=== PATIENT | female | born 1960 | race Caucasian/White ===

== ENCOUNTER 2017-02-24 17:45 | Emergency (ER) | payer SELFPAY ==
[~2017-02-24] VITALS: Ht 157.5 cm; Wt 56.4 kg
[2017-02-24 17:45] VITALS: Ht 157.5 cm; Wt 56.4 kg
[~2017-02-24 17:45] MED LIST: DULO60CA25 PO; ESTR1.2532 PO; LEVO75TA57 PO; NORT25CA79 PO; OXYC1TAB11 PO; ROPI2TAB6 PO
--- OUTSIDE RECORDS SUMMARY | 2017-02-24 17:49 | XMS REPORT ---
Author Author Rebel Augustine Organization [employer] Address Unknown Phone Unavailable Care Team Providers Care Clinical Orthoptist Name Role Phone Rbeel Augustine CP Unavailable Allergies No Known Allergies Problems No Known Problems Medications No Known Medications Results No Known Results Summary Purpose [employer] Submission
--- OUTSIDE RECORDS SUMMARY | 2017-02-24 17:49 | XMS REPORT ---
Author Author Rebel Augustine Organization [employer] Address Unknown Phone Unavailable Care Team Providers Care Systems Administrator Name Role Phone Rebel Augustine CP Unavailable Allergies No Known Allergies Problems Problem Type Condition Code Onset Dates Condition Status Assessment Dental caries, unspecified K02.9 Active Medications Medication Code System Code Instructions Start Date End Date Status Dosage Cymbalta [facility] [address]-90 not defined Premarin [facility] [address]-83 not defined Hydrocodone-Acetaminophen [facility] [address]-14 5-325 MG Orally every 4-6 hours p.r.n. for Aug 12, 2016 1 tablet as needed Amoxicillin [facility] [address]-70 500 MG Orally every 8 hrs for 1 capsule Ropinirole HCl [facility] [address]-60 not defined Synthroid [facility] [address]-38 not defined Procedures Procedure Coding System Code Date SURG REMOVAL ERUPTED TOOTH CPT-4 D7210 Aug 09, 2016 Vital Signs Date/Time: Aug 09, 2016 Blood Pressure Diastolic 56 mm Hg Blood Pressure Systolic 106 mm Hg Cardiac Monitoring Heart Rate 74 /min Results No Known Results Summary Purpose [employer] Submission
--- OUTSIDE RECORDS SUMMARY | 2017-02-24 17:49 | XMS REPORT | Referral Summary ---
Author Author [facility] Organization [facility] Address Unknown Phone Unavailable Care Team Providers Care Jewel Flat Surfacer Name Role Phone Tamar Eaton Primary Care Physician [phone] Encounter DANO [id number] Date(s): 09/06/15 - 09/06/15 [facility], Orthopedics [address] [place], [place] [address] Discharge Disposition: 01-Home or Self Care Attending Physician: Jovany Jimenez MD Vital Signs No data available for this section Problem List Condition Effective Dates Status Health Status Informant Acne Active rosacea(Confirmed) Cervicalgia(Confirme Active d) grade 1 lithesis Active L5-S1(Confirmed)1 DDD(Confirmed)2 Active 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 ) Depressive Active disorder(Confirmed) Fibromyalgia(Confirm Active ed) Incontinence of Active feces(Confirmed) Low back Active pain(Confirmed) Median Active neuropathy(Confirmed ) Migraine Active (disorder)(Confirmed ) Migraine Active headache(Confirmed) Foraminal Active narrowing(Confirmed) 3 Neck pain Active (finding)(Confirmed) Large nerve Root Active Cyst S2 sacrum(Confirmed)4 Numbness(Confirmed) Active OA (osteoarthritis) Active of hip(Confirmed) Raynaud's Active phenomenon(Confirmed ) Restless leg Active syndrome(Confirmed) Restless legs Active (disorder)(Confirmed ) Sleep apnea - no Active CPAP(Confirmed) Spondylosis(Confirme Active d)5 Thyroid Active disease(Confirmed) Greater trochanteric Active bursitis(Confirmed) 1see conversion document. 2see conversion document. 3see conversion document. 4see conversion document. 5see conversion document. Allergies, Adverse Reactions, Alerts Substance Reaction Severity Status indomethacin Active Wellbutrin Headache Severe Active Medications cyclobenzaprine 10 mg oral tablet 10 mg 1 tabs, Oral, TID, as needed for spasm, # 30 tabs, 0 Refill(s), Pharmacy: [id number], 1 tabs Oral TID,PRN:as needed for spasm Start Date: 03/28/15 Status: Ordered Cymbalta 60 mg oral delayed release capsule 1 caps, Oral, Daily, # 120 caps, 2 Refill(s) Start Date: 05/20/14 Stop Date: 05/15/15 Status: Ordered Premarin 1.25 mg oral tablet See Instructions, Take 1 tablet (1.25 MG) by oral route every day for 21 consecutive days, followed by 7 days off., 0 Refill(s) Start Date: 07/05/14 Status: Ordered rOPINIRole 2 mg, Oral, TID, 0 Refill(s) Start Date: 06/03/15 Status: Ordered Synthroid 75 mcg (0.075 mg) oral tablet 75 mcg 1 tabs, Oral, Daily, PT WILL NEED AN APPT. AND LABS DONE PRIOR TO NEXT FILL./CALL TO [facility] AND ADVISED LAST FILL./NEEDS AN APPT. AND LABS., # 90 tabs , 0 Refill(s), called to pharmacy (Rx), 1 tabs Oral Daily,Instr:PT WILL NEED AN APPT. AND LABS... Start Date: 08/24/15 Status: Ordered traMADol 50 mg oral tablet 50 mg 1 tabs, Oral, q4hr, Pain Moderate (4-6), # 90 tabs, 1 Refill(s) Start Date: 09/05/15 Stop Date: 10/06/15 Status: Ordered Vitamin C 500 mg oral tablet 500 mg 1 tabs, Oral, Daily, # 50 tabs, 0 Refill(s) Start Date: 08/11/15 Status: Ordered Results No data available for this section Immunizations Vaccine Date Refusal Reason tetanus/diphth/pertuss (Tdap) adult/adol 10/28/06 Procedures Procedure Date Related Diagnosis Body Site Repair Tendon Upper Extremity (Left)1 08/23/15 Right foot bunion excision 2009 Right rotator cuff repair 2002 Appendectomy 1997 SAUD BSO 1997 section2 wrist fracture repair 1auto-populated from documented surgical case 2see NextGen. Social History Social History Type Response Smoking Status Never smoker Assessment and Plan No data available for this section
--- OUTSIDE RECORDS SUMMARY | 2017-02-24 17:49 | XMS REPORT | Referral Summary ---
Author Author [facility] Organization [facility] Address Unknown Phone Unavailable Care Team Providers Care Environmental Attorney Name Role Phone Tamar Eaton Primary Care Physician [phone] Encounter VC Date(s): 11/12/16 - 11/12/16 [facility] [address] [place] [address] Discharge Diagnosis: Restless legs (disorder) Discharge Diagnosis: On hormone replacement therapy Discharge Diagnosis: Hypothyroidism Discharge Diagnosis: Depressive disorder Discharge Diagnosis: Fibromyalgia Discharge Disposition: 01-Home or Self Care Attending Physician: Sushila Dial PA-C Admitting Physician: Sushila Dial PA-C Vital Signs Most recent to 1 oldest [Reference Range]: Temperature Oral 36.4 degC [35.8-37.3 degC] (11/12/16 10:15 AM) Peripheral Pulse 82 bpm Rate [60-100 bpm] (11/12/16 10:15 AM) Respiratory Rate 20 br/min [14-20 br/min] (11/12/16 10:15 AM) Blood Pressure 118/74 mmHg [90-140/60-90 mmHg] (11/12/16 10:15 AM) Problem List Condition Effective Dates Status Health Status Informant Acne Active rosacea(Confirmed) Cervicalgia(Confirme Active d) grade 1 lithesis Active L5-S1(Confirmed)1 DDD(Confirmed)2 Active 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 ) Depressive Active disorder(Confirmed) Fibromyalgia(Confirm Active ed) On hormone Active replacement therapy(Confirmed) Incontinence of Active feces(Confirmed) Low back Active [...] spasm, # 30 tabs, 0 Refill(s), Pharmacy: [id number], 1 tabs Oral TID,PRN:as needed for spasm Start Date: 03/28/15 Status: Ordered Cymbalta 60 mg oral delayed release capsule 60 mg 1 caps, Oral, Daily, # 120 tabs, 2 Refill(s) Start Date: 07/10/16 Status: Ordered Premarin 1.25 mg oral tablet See Instructions, Take 1 tablet (1.25 MG) by oral route every day for 21 consecutive days, followed by 7 days off., # 90 tabs, 3 Refill(s) Start Date: 04/18/16 Status: Ordered rOPINIRole 2 mg oral tablet 2 mg, Oral, TID, # 270 tabs, 1 Refill(s), Pharmacy: [facility] # 581 , 2 mg Oral TID Start Date: 06/14/16 Status: Ordered Synthroid 75 mcg (0.075 mg) oral tablet 75 mcg 1 tabs, Oral, Daily, # 90 tabs, 3 Refill(s), Pharmacy: [facility] - [place] # 581, 1 tabs Oral Daily Start Date: 09/29/15 Status: Ordered Vitamin C 500 mg oral tablet 500 mg 1 tabs, Oral, Daily, # 50 tabs, 0 Refill(s) Start Date: 08/11/15 Status: Ordered Results Chemistry Most recent to 1 oldest [Reference Range]: TSH with Reflex Free 0.55 T4 [0.35-4.94] (11/12/16 10:52 AM) Immunizations Given and Recorded Vaccine Date Status Refusal Reason tetanus/diphth/pertuss (Tdap) adult/adol 10/28/06 Recorded Procedures Procedure Date Related Diagnosis Body Site Collection of venous blood by venipuncture 11/12/16 Repair Tendon Upper Extremity (Left)1 08/23/15 Right foot bunion excision 2009 Right rotator cuff repair 2003 Appendectomy 1998 SAUD BSO 1997 section2 wrist fracture repair 1auto-populated from documented surgical case 2see NextGen. Social History Social History Type Response Smoking Status Never smoker Assessment and Plan Extracted from: Title: Office Visit Note- Med Ck Author: Sushila Dial PA-C Date: Assessment/Plan Depressive disorder Continue on Cymbalta. Gets medication assistance. Ordered: Office Visit Level 3 Est 70296 Fibromyalgia Same as above. Ordered: Office Visit Level 3 Est 23137 Hypothyroidism Will check TSH today andadjust Synthroid if needed. Will send refills once TSH has returned. Ordered: Office Visit Level 3 Est 05238 TSH with Reflex Free T4 On hormone replacement therapy D/w pt that she needs WWE done yearly with manualbreast exam. Does not need pap/pelvic exam. Also recommended yearly mammogram. May try [facility] to see if she would be able to get payment assistance for mammogram. Ordered: Office Visit Level 3 Est 91738 Restless legs (disorder) Continue on Requip. Gets medication assistance. Ordered: Office Visit Level 3 Est 49753
--- OUTSIDE RECORDS SUMMARY | 2017-02-24 17:49 | XMS REPORT | Referral Summary ---
Author Author [facility] Organization [facility] Address Unknown Phone Unavailable Care Team Providers Care Coater Name Role Phone Tamar Eaton Primary Care Physician [phone] Encounter Date(s): 03/24/15 - 03/24/15 [facility] [address] [place] [address] Dr Aleman [place] [address]- Discharge Diagnosis: Acute back pain Discharge Diagnosis: Raynauds syndrome Discharge Disposition: 01-Home or Self Care Attending Physician: Ivett Pruitt MD Admitting Physician: Ivett Pruitt MD Vital Signs Most recent to 1 oldest [Reference Range]: Peripheral Pulse 80 bpm Rate [60-100 bpm] (03/24/15 9:10 AM) Blood Pressure 117/70 mmHg [90-140/60-90 mmHg] (03/24/15 9:10 AM) Problem List Condition Effective Dates Status [...] Alerts Substance Reaction Severity Status indomethacin Active Medications cyclobenzaprine 10 mg oral tablet 10 mg 1 tabs, Oral, TID, as needed for spasm, # 30 tabs, 0 Refill(s), Pharmacy: [facility] [id number], 1 tabs Oral TID,PRN:as needed for spasm Start Date: 03/28/15 Status: Ordered Cymbalta 60 mg oral delayed release capsule 1 caps, Oral, Daily, # 120 caps, 2 Refill(s) Start Date: 05/20/14 Stop Date: 05/15/15 Status: Ordered ibuprofen 800 mg oral tablet See Instructions, Take 1 tablet (800 MG) by oral route every 8 hours as needed for pain., 0 Refill(s), Indication: 1 Start Date: 07/05/14 Status: Ordered NIFEdipine 10 mg oral capsule 10 mg 1 caps, Oral, TID, # 90 caps, 5 Refill(s) Start Date: 03/24/15 Status: Ordered Premarin 1.25 mg oral tablet See Instructions, Take 1 tablet (1.25 MG) by oral route every day for 21 consecutive days, followed by 7 days off., 0 Refill(s) Start Date: 07/05/14 Status: Ordered rOPINIRole 2 mg, Oral, TID, 0 Refill(s) Start Date: 06/03/15 Status: Ordered Synthroid 75 mcg (0.075 mg) oral tablet 1 tabs, Oral, Daily, # 90 tabs, 1 Refill(s) Start Date: 01/13/15 Status: Ordered Results No data available for this section Immunizations Vaccine Date Refusal Reason tetanus/diphth/pertuss (Tdap) adult/adol 10/28/06 Procedures Procedure Date Related Diagnosis Body Site Right foot bunion excision 2009 Right rotator cuff repair 2003 Appendectomy 1997 SAUD BSO 1998 section1 1see NextGen. Social History Social History Type Response Smoking Status Never smoker Assessment and Plan Extracted from: Title: Office Visit Note Author: Ivett Pruitt MD Date: 03/24/15 Assessment/Plan 1.Raynauds syndrome Continue to monitor further manifestations of limited scleroderma. I did discuss that it can affect the heart and lungs. I have notdone any evaluation because of cost. I advised that she should be aware of any change in exercise tolerance. I gave her prescription for the immediate release nifedipine which hopefully be cheaper. She can try different pharmacies determine if one may be cheaper and I also suggested that she can try [facility] which may be able to give her a discounted jean-baptiste also. 2.Acute back pain Shewas given a handout on exercises to do. Also suggested that she try using warm compresses. Follow-up in 6 months. Orders: NIFEdipine, 10 mg 1 caps, Oral, TID, # 90 caps, 5 Refill(s)
--- OUTSIDE RECORDS SUMMARY | 2017-02-24 17:49 | XMS REPORT | Referral Summary ---
Author Author [facility] Organization [facility], Orthoped[facility] Address Unknown Phone Unavailable Care Team Providers Care Reeling Operator Name Role Phone Tamar Eaton Primary Care Physician [phone] Encounter [facility] [id number] Date(s): 10/06/15 - 10/06/15 [facility], Orthopedics [address] [place], [place] [address] Discharge Disposition: 01-Home or Self Care Attending Physician: Jacob Ramirez MD Admitting Physician: Jacob Ramirez MD Vital Signs Most recent to 1 oldest [Reference Range]: Temperature Oral 36.3 degC [35.8-37.3 degC] (10/06/15 9:10 AM) Problem List Condition Effective Dates [...] spasm, # 30 tabs, 0 Refill(s), Pharmacy: [facility] [id number], 1 tabs Oral TID,PRN:as needed for spasm [...] Daily, # 90 tabs, 3 Refill(s), Pharmacy: [email or web address] - [place] # 581, 1 tabs Oral Daily Start [...] repair 2003 Appendectomy 1997 SAUD BSO 1998 section2 wrist fracture repair 1auto-populated from documented surgical case 2see NextGen. Social History Social History Type Response Smoking Status Never smoker Assessment and Plan Extracted from: Title: cast removal Author: Genny Lim Date: 10/06/15 cast was removed from patient's L arm per Dr. Andrew's request prior to x- rays
--- OUTSIDE RECORDS SUMMARY | 2017-02-24 17:49 | XMS REPORT | Referral Summary ---
Author Author [facility] Organization [facility] Address Unknown Phone Unavailable Care Team Providers Care Winder Hand Name Role Phone Tamar Eaton Primary Care Physician [phone] Encounter VC Date(s): 08/23/15 - 08/23/15 [facility] [address] [place] [address] Discharge Diagnosis: Rupture of extensor tendon of finger Discharge Disposition: 01-Home or Self Care Attending Physician: Shade Castro MD Admitting Physician: Shade Castro MD Vital Signs Most recent to 1 oldest [Reference Range]: Temperature Skin 36.1 degC [36-37 degC] (08/23/15 1:38 PM) Temperature Temporal 35.9 degC Artery [36.3-37.8 *LOW* degC] (08/23/15 2:45 PM) Peripheral Pulse 67 bpm Rate [60-100 bpm] (08/23/15 3:30 PM) Heart Rate Monitored 67 bpm [60-100 bpm] (08/23/15 2:15 PM) Respiratory Rate 16 br/min [14-20 br/min] (08/23/15 3:30 PM) Blood Pressure 82/54 mmHg [90-140/60-90 mmHg] *LOW* (08/23/15 3:30 PM) Mean Arterial 79 mmHg Pressure, Cuff (08/23/15 10:49 AM) SpO2 95 % (08/23/15 3:00 PM) Problem List Condition Effective Dates Status Health [...] spasm, # 30 tabs, 0 Refill(s), Pharmacy: [facility], 1 tabs Oral TID,PRN:as needed for spasm [...] APPT. AND LABS DONE PRIOR TO NEXT FILL., # 30 tabs, 0 Refill(s), Pharmacy: [facility] - [place] # 581, 1 tabs Oral Daily,Instr:PT WILL NEED AN APPT. AND LABS DONE PRIOR TO NEXT FILL. Start Date: 08/19/15 Status: Ordered traMADol 50 mg oral tablet 50 mg 1 tabs, Oral, q4hr, Pain Moderate (4-6), 0 Refill(s) Start Date: 08/23/15 Status: Ordered Vitamin C 500 mg oral tablet 500 mg 1 tabs, Oral, Daily, # 50 tabs, 0 Refill(s) Start Date: 08/11/15 Status: Ordered Results Chemistry Most recent to 1 oldest [Reference Range]: Blood Glucose, 79 mg/dL Capillary [70-100 (08/23/15 9:23 AM) mg/dL] Immunizations Vaccine Date Refusal Reason tetanus/diphth/pertuss (Tdap) adult/adol 10/28/06 Procedures Procedure Date Related Diagnosis Body Site Repair Tendon Upper Extremity (Left)1 08/23/15 Right foot bunion excision 2009 Right rotator cuff repair 2003 Appendectomy 1997 SAUD BSO 1998 section2 wrist fracture repair 1auto-populated from documented surgical case 2see Melita. Social History Social History Type Response Smoking Status Never smoker Assessment and Plan No data available for this section
--- OUTSIDE RECORDS SUMMARY | 2017-02-24 17:49 | XMS REPORT | Referral Summary ---
Author Author [facility] Organization [facility] Address Unknown Phone Unavailable Care Team Providers Care Bridge Tender Name Role Phone Tamar Eaton Primary Care Physician [phone] Encounter Date(s): 03/24/15 - 03/24/15 [facility] [address] [place] [address] Dr [place]man [place] [id number]- Discharge Diagnosis: Acute back pain Discharge Diagnosis: [...] spasm, # 30 tabs, 0 Refill(s), Pharmacy: [facility] [address], 1 tabs Oral TID,PRN:as needed for spasm [...]
--- OUTSIDE RECORDS SUMMARY | 2017-02-24 17:49 | XMS REPORT | Referral Summary ---
Author Author [facility] Organization [facility] Address Unknown Phone Unavailable Care Team Providers Care Cloth Reeler Name Role Phone Tamar Eaton Primary Care Physician [phone] Encounter Date(s): 03/24/15 - 03/24/15 [facility] [address] [place] [address] Dr Aleman [place] [id number]- Discharge Diagnosis: Acute back pain Discharge Diagnosis: [...] spasm, # 30 tabs, 0 Refill(s), Pharmacy: [facility] [address], 1 tabs Oral TID,PRN:as needed for spasm [...]
--- OUTSIDE RECORDS SUMMARY | 2017-02-24 17:49 | XMS REPORT | Referral Summary ---
Author Author [facility], [facility] Organization [facility] Address Unknown Phone Unavailable Care Team Providers Care Psychiatric Registered Nurse Name Role Phone Tamar Eaton Primary Care Physician [phone] Encounter VC Date(s): 06/03/15 - 06/03/15 [facility] [place], [address] [place] [address]- Discharge Disposition: 01-Home or Self Care Attending Physician: Jairo Eaton MD Admitting Physician: Jairo Eaton MD Vital Signs Most recent to 1 oldest [Reference Range]: Blood Pressure 96/60 mmHg [90-140/60-90 mmHg] (06/03/15 10:43 AM) Problem List Condition Effective Dates Status [...] 0 Refill(s), Pharmacy: [id number], 1 tabs Oral TID,PRN:as needed for spasm [...] Daily, # 90 tabs, 3 Refill(s), Pharmacy: [facility] [place] # 581, 1 tabs Oral Daily Start [...] smoker Assessment and Plan Extracted from: Title: Ambulatory Patient Education Author: Jairo Eaton MD Date: 06/08 Family Medicine Raynaud's Syndrome Raynaud's Syndrome is a disorder of the blood vessels in your hands and feet. It occurs when small arteries of the arms/hands or legs/feet become sensitive to cold or emotional upset. This causes the arteries to constrict, or narrow, and reduces blood flow to the area. The color in the fingers or toes changes from white to bluish to red and this is not usually painful. There may be numbness and tingling. Sores on the skin (ulcers) can form. Symptoms are usually relieved by warming. HOME CARE INSTRUCTIONS Avoid exposure to cold. Keep your whole body warm and dry. Dress in layers. Wear mittens or gloves when handling ice or frozen food and when outdoors. Use holders for glasses or cans containing cold drinks. If possible, stay indoors during cold weather. Limit your use of caffeine. Switch to decaffeinated coffee, tea, and soda pop. Avoid chocolate. Avoid smoking or being around cigarette smoke. Smoke will make symptoms worse. Wear loose fitting socks and comfortable, roomy shoes. Avoid vibrating tools and machinery. If possible, avoid stressful and emotional situations. Exercise, meditation and yoga may help you cope with stress. Biofeedback may be useful. Ask your caregiver about medicine (calcium channel blockers) that may control Raynaud's phenomena. SEEK MEDICAL CARE IF: Your discomfort becomes worse, despite conservative treatment. You develop sores on your fingers and toes that do not heal. Document Released: 09/13/2001 Document Revised: 12/08/2012 Document Reviewed: [facility] Patient Information 2015 [employer]. This information is not intended to replace advice given to you by your health care provider. Make sure you discuss any questions you have with your health care provider. Fibromyalgia Fibromyalgia is a disorder that is often misunderstood. It is associated with muscular pains and tenderness that comes and goes. It is often associated with fatigue and sleep disturbances. Though it tends to be long-lasting, fibromyalgia is not life-threatening. CAUSES The exact cause of fibromyalgia is unknown. People with certain gene types are predisposed to developing fibromyalgia and other conditions. Certain factors can play a role as triggers, such as: Spine disorders. Arthritis. Severe injury (trauma) and other physical stressors. Emotional stressors. SYMPTOMS The main symptom is pain and stiffness in the muscles and joints, which can vary over time. Sleep and fatigue problems. Other related symptoms may include: Bowel and bladder problems. Headaches. Visual problems. Problems with odors and noises. Depression or mood changes. Painful periods (dysmenorrhea). Dryness of the skin or eyes. DIAGNOSIS There are no specific tests for diagnosing fibromyalgia. Patients can be diagnosed accurately from the specific symptoms they have. The diagnosis is made by determining that nothing else is causing the problems. TREATMENT There is no cure. Management includes medicines and an active, healthy lifestyle. The goal is to enhance physical fitness, decrease pain, and improve sleep. HOME CARE INSTRUCTIONS Only take [id number] or prescription medicines as directed by your caregiver. Sleeping pills, tranquilizers, and pain medicines may make your problems worse. Low-impact aerobic exercise is very important and advised for treatment. At first, it may seem to make pain worse. Gradually increasing your tolerance will overcome this feeling. Learning relaxation techniques and how to control stress will help you. Biofeedback, visual imagery, hypnosis, muscle relaxation, yoga, and meditation are all options. Anti-inflammatory medicines and physical therapy may provide short-term help. Acupuncture or massage treatments may help. Take muscle relaxant medicines as suggested by your caregiver. Avoid stressful situations. Plan a healthy lifestyle. This includes your diet, sleep, rest, exercise, and friends. Find and practice a hobby you enjoy. Join a fibromyalgia support group for interaction, ideas, and sharing advice. This may be helpful. SEEK MEDICAL CARE IF: You are not having good results or improvement from your treatment. FOR MORE INFORMATION National Fibromyalgia Association: www.fmaware.org Arthritis Foundation: www.arthritis.org Document Released: 09/16/2006 Document Revised: 12/08/2012 Document Reviewed: [employer] Patient Information 2015 [facility], [facility]. This information is not intended to replace advice given to you by your health care provider. Make sure you discuss any questions you have with your health care provider. No follow up information was provided. Extracted from: Title: Office Visit Note Author: Jairo Eaton MD Date: 06/03/15 Assessment/Plan Degenerative joint disease of pelvis (disorder) The form for disability has been completed. Ordered: Office Visit Level 3 Est 70656 Fibromyalgia Ordered: Office Visit Level 3 Est 61647 Low back pain Ordered: Office Visit Level 3 Est 35658 Raynaud's phenomenon Ordered: Office Visit Level 3 Est 93476 Restless legs (disorder) Ordered: Office Visit Level 3 Est 89560
--- OUTSIDE RECORDS SUMMARY | 2017-02-24 17:49 | XMS REPORT ---
Author Author Rebel Augustine Organization [employer] Address Unknown Phone Unavailable Care Team Providers Care General Studies Program Chair Name Role Phone Rebel Augustine CP Unavailable Allergies No Known Allergies Problems Problem Type Condition Code Onset Dates Condition Status Assessment Encounter for dental examination and cleaning without abnormal findings Z01.20 Active Medications Medication Code System Code Instructions Start Date End Date Status Dosage Ropinirole HCl [facility] [address]-64 not defined Premarin [facility] [address]-52 not defined Synthroid [facility] [address]-05 not defined Cymbalta [facility] [address]-46 not defined Procedures Procedure Coding System Code Date OV OBS - NO OTH SRVC PRFRM SEE CPT CPT-4 D9430 April 18, 2016 Results No Known Results Summary Purpose [employer] Submission
--- OUTSIDE RECORDS SUMMARY | 2017-02-24 17:49 | XMS REPORT ---
Author Author Rebel Augustine Organization [employer] Address Unknown Phone Unavailable Care Team Providers Care Certified Medication Aide Name Role Phone Rebel Augustine CP Unavailable Allergies, Adverse Reactions, Alerts Substance Reaction Event Type Wellbutrin headaches Drug Allergy Indocin ? Drug Allergy Problems Problem Type Condition Code Onset Dates Condition Status Assessment Encounter for dental examination and cleaning without abnormal findings Z01.20 Active Medications Medication Code System Code Instructions Start Date End Date Status Dosage Amoxicillin [facility] [address]-89 500 MG Orally every 8 hrs for 1 capsule Ropinirole HCl [facility] [address]-79 not defined Cymbalta [facility] [address]-17 not defined Synthroid [facility] [address]-13 not defined Premarin [facility] [address]-67 not defined Procedures Procedure Coding System Code Date OV OBS - NO OTH SRVC PRFRM SEE CPT CPT-4 D9430 Jul 17, 2016 Results No Known Results Summary Purpose [employer] Submission
--- OUTSIDE RECORDS SUMMARY | 2017-02-24 17:49 | XMS REPORT | Referral Summary ---
Author Organization Unknown Address Unknown Phone Unavailable Care Team Providers Care Security Business Analyst Name Role Phone Tamar Eaton Primary Care Physician [phone] Encounter VC Date(s): 01/18/15 - 01/18/15 [facility], [address] [place] [address] Discharge Disposition: Home or Self Care Attending Physician: Jairo Eaton MD Admitting Physician: Jairo Eaton MD Vital Signs Most recent to 1 oldest [Reference Range]: Peripheral Pulse 80 bpm Rate [60-100 bpm] (01/18/15 9:07 AM) Blood Pressure 104/68 mmHg [90-140/60-90 mmHg] (01/18/15 9:07 AM) Problem List Condition Effective Dates Status [...] Substance Reaction Severity Status indomethacin Active Medications Cymbalta 60 mg oral delayed release capsule 1 caps, Oral, Daily, # 120 caps, 2 Refill(s) Start Date: 05/20/14 Stop Date: 05/15/15 Status: Ordered ibuprofen 800 mg oral tablet See Instructions, Take 1 tablet (800 MG) by oral route every 8 hours as needed for pain., 0 Refill(s), Indication: 1 Special Instructions: Take 1 tablet (800 MG) by oral route every 8 hours as needed for pain. Start Date: 07/05/14 Status: Ordered Premarin 1.25 mg oral tablet See Instructions, Take 1 tablet (1.25 MG) by oral route every day for 21 consecutive days, followed by 7 days off., 0 Refill(s) Special Instructions: Take 1 tablet (1.25 MG) by oral route every day for 21 consecutive days, followed by 7 days off. Start Date: 07/05/14 Status: Ordered Synthroid 75 mcg (0.075 mg) oral tablet 1 tabs, Oral, Daily, # 90 tabs, 1 Refill(s) Start Date: 01/13/15 Status: Ordered Results No data available for this section Immunizations Vaccine Date Refusal Reason tetanus/diphth/pertuss (Tdap) adult/adol 10/28/06 Procedures Procedure Date Related Diagnosis Body Site Right foot bunion excision 2008 Right rotator cuff repair 2002 Appendectomy 1997 SAUD BSO 1997 section1 1see [employer]. Social History Social History Type Response Smoking Status Never smoker Assessment and Plan No data available for this section
--- OUTSIDE RECORDS SUMMARY | 2017-02-24 17:49 | XMS REPORT | Referral Summary ---
Author Author [facility] Organization [facility] Address Unknown Phone Unavailable Care Team Providers Care Digital Account Manager Name Role Phone Tamar Eaton Primary Care Physician [phone] Encounter Date(s): 03/24/15 - 03/24/15 [facility] [place] [address] [place] [address] [place] [address]- Discharge Diagnosis: Acute back pain Discharge Diagnosis: [...] spasm, # 30 tabs, 0 Refill(s), Pharmacy: [facility], 1 tabs Oral TID,PRN:as needed for spasm [...]
--- OUTSIDE RECORDS SUMMARY | 2017-02-24 17:50 | XMS REPORT ---
Author Author Rebel Augustine Organization [employer] Address Unknown Phone Unavailable Care Team Providers Care Director Of Medicare Name Role Phone Rebel Augustine CP Unavailable Allergies, Adverse Reactions, Alerts Substance Reaction Event Type Wellbutrin headaches Drug Allergy Indocin ? Drug Allergy Problems Problem Type Condition Code Onset Dates Condition Status Assessment Encounter for dental examination and cleaning without abnormal findings Z01.20 Active Medications Medication Code System Code Instructions Start Date End Date Status Dosage Cymbalta [facility] [address]-41 not defined Premarin [facility] [address]-97 not defined Ropinirole HCl [facility] [address]-00 not defined Synthroid [facility] [address]-62 not defined Results No Known Results Summary Purpose [employer] Submission
--- OUTSIDE RECORDS SUMMARY | 2017-02-24 17:50 | XMS REPORT | Referral Summary ---
Author Author [facility] Organization [facility] Address Unknown Phone Unavailable Care Team Providers Care Plate Setter Name Role Phone Tamar Eaton Primary Care Physician [phone] Encounter [facility] [id number] Date(s): 11/17/15 - 11/17/15 [facility]oped[facility] [address] [place] [address] Discharge Diagnosis: Nontraumatic rupture of tendon of left thumb Discharge Disposition: 01-Home or Self Care Attending Physician: Micheal Mathews MD Vital Signs Most recent to 1 oldest [Reference Range]: Temperature Oral 36.4 degC [35.8-37.3 degC] (11/17/15 9:11 AM) Problem List Condition Effective Dates Status [...] spasm, # 30 tabs, 0 Refill(s), Pharmacy: [facility] [address], 1 tabs Oral TID,PRN:as needed for spasm [...] Daily, # 90 tabs, 3 Refill(s), Pharmacy: [facility] [place] # [id number], 1 tabs Oral Daily Start Date: 09/29/15 Status: Ordered traMADol 50 mg oral tablet 50 mg 1 tabs, Oral, q6hr, as needed for pain, # 30 tabs, 0 Refill(s) Start Date: 11/17/15 Stop Date: 12/08/15 Status: Ordered Vitamin C 500 mg oral [...]
--- OUTSIDE RECORDS SUMMARY | 2017-02-24 17:50 | XMS REPORT ---
Author Author Rebel Augustine Organization [employer] Address Unknown Phone Unavailable Care Team Providers Care Aviation Consultant Name Role Phone Rebel Augustine CP Unavailable Allergies, Adverse Reactions, Alerts Substance Reaction Event Type Wellbutrin headaches Drug Allergy Indocin ? Drug Allergy Problems Problem Type Condition Code Onset Dates Condition Status Assessment Encounter for dental examination and cleaning without abnormal findings Z01.20 Active Medications Medication Code System Code Instructions Start Date End Date Status Dosage Ropinirole HCl [facility] [address]-63 not defined Cymbalta [facility] [address]-76 not defined Premarin [facility] [address]-27 not defined Synthroid [facility] [address]-74 not defined Procedures Procedure Coding System Code Date OV OBS - NO OTH SRVC PRFRM SEE CPT CPT-4 D9430 Jul 03, 2016 Results No Known Results Summary Purpose [employer] Submission
--- OUTSIDE RECORDS SUMMARY | 2017-02-24 17:50 | XMS REPORT | Referral Summary ---
Author Author [facility] Organization [facility] Address Unknown Phone Unavailable Care Team Providers Care Clinical Documentation Nurse Name Role Phone Tamar Eaton Primary Care Physician [phone] Encounter Date(s): 09/28/15 - 09/28/15 [facility] [address] [place] [address]- Discharge Diagnosis: Left shoulder pain Discharge Diagnosis: Hypothyroidism Discharge Diagnosis: Encounter for long-term (current) use of medications Discharge Disposition: 01-Home or Self Care Attending Physician: Sushila Dial PA-C Admitting Physician: Sushila Dial PA-C Vital Signs Most recent to 1 oldest [Reference Range]: Apical Heart Rate 72 bpm [60-100 bpm] (09/28/15 1:51 PM) Blood Pressure 110/68 mmHg [90-140/60-90 mmHg] (09/28/15 1:51 PM) Problem List Condition Effective Dates Status [...] Pharmacy: [facility] [place], 1 tabs Oral TID,PRN:as needed for spasm [...] 75 mcg 1 tabs, Oral, Daily, # 30 tabs, 0 Refill(s), 1 tabs Oral Daily,Instr:PT WILL NEED AN APPT. AND LABS DONE PRIOR TO NEXT FILL./. QUANTITY DECREASED PT. Start Date: 09/28/15 Status: Ordered traMADol 50 mg oral tablet 50 mg 1 tabs, Oral, q4hr, Pain Moderate (4-6), # 90 tabs, 1 Refill(s) Start Date: 09/05/15 Stop Date: 10/06/15 Status: Ordered Vitamin C 500 mg oral tablet 500 mg 1 tabs, Oral, Daily, # 50 tabs, 0 Refill(s) Start Date: 08/11/15 Status: Ordered Results Chemistry Most recent to 1 oldest [Reference Range]: Sodium Lvl [135-144 137 mEq/L mEq/L] (09/28/15 2:40 PM) Potassium Lvl 4.0 mEq/L [3.5-5.2 mEq/L] (09/28/15 2:40 PM) Chloride [99-111 100 mEq/L mEq/L] (09/28/15 2:40 PM) CO2 [22-31 mEq/L] 29 mEq/L (09/28/15 2:40 PM) AGAP [3-20] 8 (09/28/15 2:40 PM) BUN [10-20 mg/dL] 14 mg/dL (09/28/15 2:40 PM) Glucose Lvl [70-99 82 mg/dL mg/dL] (09/28/15 2:40 PM) Creatinine Lvl 0.72 mg/dL [0.57-1.11 mg/dL] (09/28/15 2:40 PM) eGFR [>60 mL/min] >60 mL/min 1 (09/28/15 2:40 PM) Calcium Lvl 9.5 mg/dL [8.9-10.5 mg/dL] (09/28/15 2:40 PM) TSH with Reflex Free 3.52 T4 [0.35-4.94] (09/28/15 2:40 PM) 1Result Comment: Multiply eGFR results by 1.21 for race. Immunizations Vaccine Date Refusal Reason tetanus/diphth/pertuss (Tdap) adult/adol 10/28/06 Procedures Procedure Date Related Diagnosis Body Site Collection of venous blood by venipuncture 09/28/15 Repair Tendon Upper Extremity (Left)1 08/23/15 Right foot bunion excision 2009 Right rotator cuff repair 2003 Appendectomy 1998 SAUD BSO 1998 section2 wrist fracture repair 1auto-populated from documented surgical case 2see [employer]. Social History Social History Type Response Smoking Status Never smoker Assessment and Plan Extracted from: Title: Ambulatory Patient Education Author: Sushila Dial PA-C Date : 09/28/15 Family Medicine Hypothyroidism The thyroid is a large gland located in the lower front of your neck. The thyroid gland helps control metabolism. Metabolism is how your body handles food. It controls metabolism with the hormone thyroxine. When this gland is underactive (hypothyroid), it produces too little hormone. CAUSES These include: Absence or destruction of thyroid tissue. Goiter due to iodine deficiency. Goiter due to medications. Congenital defects (since ). Problems with the pituitary. This causes a lack of TSH (thyroid stimulating hormone). This hormone tells the thyroid to roller turner more hormone. SYMPTOMS Lethargy (feeling as though you have no energy) Cold intolerance Weight gain (in spite of normal food intake) Dry skin Coarse hair Menstrual irregularity (if severe, may lead to infertility) Slowing of thought processes Cardiac problems are also caused by insufficient amounts of thyroid hormone. Hypothyroidism in the is cretinism, and is an extreme form. It is important that this form be treated adequately and immediately or it will lead rapidly to retarded physical and mental development. DIAGNOSIS To prove hypothyroidism, your caregiver may do blood tests and ultrasound tests. Sometimes the signs are hidden. It may be necessary for your caregiver to watch this illness with blood tests either before or after diagnosis and treatment. TREATMENT Low levels of thyroid hormone are increased by using synthetic thyroid hormone. This is a safe, effective treatment. It usually takes about four weeks to gain the full effects of the medication. After you have the full effect of the medication, it will generally take another four weeks for problems to leave. Your caregiver may start you on low doses. If you have had heart problems the dose may be gradually increased. It is generally not an emergency to get rapidly to normal. HOME CARE INSTRUCTIONS Take your medications as your caregiver suggests. Let your caregiver know of any medications you are taking or start taking. Your caregiver will help you with dosage schedules. As your condition improves, your dosage needs may increase. It will be necessary to have continuing blood tests as suggested by your caregiver. Report all suspected medication side effects to your caregiver. SEEK MEDICAL CARE IF: Seek medical care if you develop: Sweating. Tremulousness (tremors). Anxiety. Rapid weight loss. Heat intolerance. Emotional swings. Diarrhea. Weakness. SEEK IMMEDIATE MEDICAL CARE IF: You develop chest pain, an irregular heart beat (palpitations), or a rapid heart beat. MAKE SURE YOU: Understand these instructions. Will watch your condition. Will get help right away if you are not doing well or get worse. Document Released: 09/16/2006 Document Revised: 12/08/2012 Document Reviewed: ExitCare Patient Information 2015 [employer]. This information is not intended to replace advice given to you by your health care provider. Make sure you discuss any questions you have with your health care provider. Shoulder Pain The shoulder is the joint that connects your arms to your body. The bones that form the shoulder joint include the upper arm bone (humerus), the shoulder blade (scapula), and the collarbone (clavicle). The top of the humerus is shaped like a ball and fits into a rather flat socket on the scapula (glenoid cavity). A combination of muscles and strong, fibrous tissues that connect muscles to bones (tendons) support your shoulder joint and hold the ball in the socket. Small, fluid-filled sacs (bursae) are located in different areas of the joint. They act as cushions between the bones and the overlying soft tissues and help reduce friction between the gliding tendons and the bone as you move your arm. Your shoulder joint allows a wide range of motion in your arm. This range of motion allows you to do things like scratch your back or throw a ball. However, this range of motion also makes your shoulder more prone to pain from overuse and injury. Causes of shoulder pain can originate from both injury and overuse and usually can be grouped in the following four categories: Redness, swelling, and pain (inflammation) of the tendon (tendinitis) or the bursae (bursitis). Instability, such as a dislocation of the joint. Inflammation of the joint (arthritis). Broken bone (fracture). HOME CARE INSTRUCTIONS Apply ice to the sore area. Put ice in a plastic bag. Place a towel between your skin and the bag. Leave the ice on for 15-20 minutes, 3-4 times per day for the first 2 days , or as directed by your health care provider. Stop using cold packs if they do not help with the pain. If you have a shoulder sling or immobilizer, wear it as long as your caregiver instructs. Only remove it to shower or bathe. Move your arm as little as possible, but keep your hand moving to prevent swelling. Squeeze a soft ball or foam pad as much as possible to help prevent swelling. Only take hysg-waf-pushryv or prescription medicines for pain, discomfort, or fever as directed by your caregiver. SEEK MEDICAL CARE IF: Your shoulder pain increases, or new pain develops in your arm, hand, or fingers. Your hand or fingers become cold and numb. Your pain is not relieved with medicines. SEEK IMMEDIATE MEDICAL CARE IF: Your arm, hand, or fingers are numb or tingling. Your arm, hand, or fingers are significantly swollen or turn white or blue. MAKE SURE YOU: Understand these instructions. Will watch your condition. Will get help right away if you are not doing well or get worse. Document Released: 06/26/2006 Document Revised: 01/31/2015 Document Reviewed: ExitCare Patient Information 2015 [employer]. This information is not intended to replace advice given to you by your health care provider. Make sure you discuss any questions you have with your health care provider. No follow up information was provided. Extracted from: Title: Office Visit Note Author: Sushila Dial PA-C Date: 09/28/15 Assessment/Plan Encounter for long-term (current) use of medications, Encounter for long- term (current) use of medications Will check basic lab today as well as below plan. Ordered: Basic Metabolic Panel Office Visit Level 3 Est 60653 Hypothyroidism, Hypothyroidism WillcheckTSH today. Pt wasgiven printed script for 30 days of Synthroid. After TSH results are back, will send90 day to mail order. Ordered: Office Visit Level 3 Est 16448 TSH with Reflex Free T4 Left shoulder pain I think shemay have some strain/tear to the subscapularis. It would be difficult to rehab at this timedue to the cast. We discussedsome ROM exercises she can start with, but I think she will benefit from PT once her cast is removed. Shemay use Tramadol forpain, and ice the shoulder if desired. Ordered: Office Visit Level 3 Est 52975 Orders: levothyroxine, 75 mcg 1 tabs, Oral, Daily, # 30 tabs, 0 Refill(s), 1 tabs Oral Daily,Instr:PT WILL NEED AN APPT. AND LABS DONE PRIOR TO NEXT FILL./. QUANTITY DECREASED PT.
--- OUTSIDE RECORDS SUMMARY | 2017-02-24 17:50 | XMS REPORT ---
Author Author Rebel Augustine Organization [employer] Address Unknown Phone Unavailable Care Team Providers Care Border Inspector Name Role Phone Rebel Augustine CP Unavailable Allergies, Adverse Reactions, Alerts Substance Reaction Event Type Wellbutrin headaches Drug Allergy Indocin ? Drug Allergy Problems Problem Type Condition Code Onset Dates Condition Status Assessment Encounter for dental examination and cleaning without abnormal findings Z01.20 Active Medications Medication Code System Code Instructions Start Date End Date Status Dosage Ropinirole HCl [facility] [address]-78 not defined Amoxicillin [facility] [address]-29 500 MG Orally every 8 hrs for 1 capsule Premarin [facility] [address]-00 not defined Synthroid [facility] [address]-49 not defined Cymbalta [facility] [address]-60 not defined Procedures Procedure Coding System Code Date INTRAORL-PERIAPICAL 1 FILM 80558 CPT-4 D0220 Sep 06, 2016 OV OBS - NO OTH SRVC PRFRM SEE CPT CPT-4 D9430 Sep 06, 2016 Results No Known Results Summary Purpose [employer] Submission
--- OUTSIDE RECORDS SUMMARY | 2017-02-24 17:50 | XMS REPORT ---
Author Author Rebel Augustine [facility] Address [address], [place] [address] Care Team Providers Care Plugger Man Name Role Phone Rebel Augustine Unavailable [phone] PROBLEMS Unknown Problems ALLERGIES Unknown Allergies SOCIAL HISTORY No smoking Hx information available PLAN OF CARE VITAL SIGNS MEDICATIONS Unknown Medications RESULTS No Results PROCEDURES No Known procedures IMMUNIZATIONS No Known Immunizations
--- OUTSIDE RECORDS SUMMARY | 2017-02-24 17:50 | XMS REPORT ---
Author Author Rebel Augustine Organization [employer] Address Unknown Phone Unavailable Care Team Providers Care Tableau Report Developer Name Role Phone Rebel Augustine CP Unavailable Allergies No Known Allergies Problems No Known Problems Medications No Known Medications Results No Known Results Summary Purpose [employer] Submission
--- OUTSIDE RECORDS SUMMARY | 2017-02-24 17:50 | XMS REPORT ---
Author Author Rebel Augustine Organization [employer] Address Unknown Phone Unavailable Care Team Providers Care Manager Salt Name Role Phone Rebel Augustine CP Unavailable Allergies No Known Allergies Problems Problem Type Condition Code Onset Dates Condition Status Assessment Unsatisfactory latter-day of tooth, unspecified K08.50 Active Medications Medication Code System Code Instructions Start Date End Date Status Dosage Amoxicillin [facility] [address]-83 500 MG Orally every 8 hrs for 1 capsule Cymbalta [facility] [address]-94 not defined Ropinirole HCl [facility] [address]-39 not defined Synthroid [facility] [address]-98 not defined Premarin [facility] [address]-06 not defined Procedures Procedure Coding System Code Date RESIN COMPOS - 1 SURFACE POSTERIOR CPT-4 D2391 Aug 07, 2016 Results No Known Results Summary Purpose [employer] Submission
--- OUTSIDE RECORDS SUMMARY | 2017-02-24 17:50 | XMS REPORT ---
Author Author Rebel Augustine Organization [employer] Address Unknown Phone Unavailable Care Team Providers Care Bail Agent Name Role Phone Rebel Augustine CP Unavailable Allergies No Known Allergies Problems No Known Problems Medications No Known Medications Results No Known Results Summary Purpose [employer] Submission
--- OUTSIDE RECORDS SUMMARY | 2017-02-24 17:50 | XMS REPORT | Referral Summary ---
Author Author [facility] Organization [facility] Address Unknown Phone Unavailable Care Team Providers Care Greeting Card Writer Name Role Phone Tamar Eaton Primary Care Physician [phone] Encounter Date(s): 03/24/15 - 03/24/15 [facility] [address] [place] [address] Dr [place]man [place] [id number]- Discharge Diagnosis: Acute back pain Discharge Diagnosis: [...] Pharmacy: [facility] [id number], 1 tabs Oral TID,PRN:as needed for spasm [...]
--- OUTSIDE RECORDS SUMMARY | 2017-02-24 17:50 | XMS REPORT | Referral Summary ---
Author Author [facility] Organization [facility] Address Unknown Phone Unavailable Care Team Providers Care Parks Worker Name Role Phone Eaton, F Primary Care Physician [phone] Encounter Date(s): 08/11/15 - 08/11/15 [facility], Orthoped[facility] [address] [place], [place] [address] Discharge Disposition: 01-Home or Self Care Attending Physician: Shade Bhandari MD Admitting Physician: Shade Bhandari MD Referring Physician: Micheal Mathews MD Vital Signs Most recent to 1 oldest [Reference Range]: Temperature Oral 36.2 degC [35.8-37.3 degC] (08/11/15 9:20 AM) Apical Heart Rate 78 bpm [60-100 bpm] (08/11/15 9:20 AM) Respiratory Rate 14 br/min [14-20 br/min] (08/11/15 9:20 AM) Blood Pressure 104/72 mmHg [90-140/60-90 mmHg] (08/11/15 9:20 AM) Problem List Condition Effective Dates Status [...] spasm, # 30 tabs, 0 Refill(s), Pharmacy: [facility] [id number], 1 tabs Oral TID,PRN:as needed for spasm [...] 1 Refill(s) Start Date: 01/13/15 Status: Ordered Vitamin C 500 mg oral tablet 500 mg 1 tabs, Oral, Daily, # 50 tabs, 0 Refill(s) Start Date: 08/11/15 Status: Ordered Results No data available for this section Immunizations Vaccine Date Refusal Reason tetanus/diphth/pertuss (Tdap) adult/adol 10/28/06 Procedures Procedure Date Related Diagnosis Body Site Right foot bunion excision 2008 Right rotator cuff repair 2003 Appendectomy 1997 SAUD BSO 1997 section1 1see [employer]. Social History Social History Type Response Smoking Status Never smoker Assessment and Plan Extracted from: Title: Office Visit Note Author: Ibrahima Jordan MD Date: 08/11/15 Assessment/Plan 55 yo F s/p ORIF L distal radius fx with sequela of EPL tendon rupture - I explained to the patient the pathophysiology of EPL tendon rupture in relation to distal radius fracture.I also present to the patient the options of conservative versus operative management including risks, benefits, complications associated with both options. Patient would like to proceed with surgical option, which will be EIP to EPL tendon transfer. I will place the patient on our surgical list and will contact her once an OR date has been determined. - Since patient has been complaining of shooting and burning pain, this could be because of her fibromyalgia. I also have a concern that she might develop RSD. I will prescribe pt Vit C 500mg daily for the next 50 days.
--- OUTSIDE RECORDS SUMMARY | 2017-02-24 17:50 | XMS REPORT ---
Author Author Rebel Augustine Organization [employer] Address Unknown Phone Unavailable Care Team Providers Care Lead Pharmacy Technician Name Role Phone Rebel Augustine CP Unavailable Allergies No Known Allergies Problems Problem Type Condition Code Onset Dates Condition Status Assessment Cracked tooth K03.81 Active Medications Medication Code System Code Instructions Start Date End Date Status Dosage Cymbalta [facility] [address]-37 not defined Synthroid [facility] [address]-00 not defined Premarin [facility] [address]-29 not defined Ropinirole HCl [facility] [address]-40 not defined Procedures Procedure Coding System Code Date CROWN-PORCELN [facility] PREDOM BASE METL CPT-4 D2751 May 01, 2016 Results No Known Results Summary Purpose [employer] Submission
--- OUTSIDE RECORDS SUMMARY | 2017-02-24 17:50 | XMS REPORT | Referral Summary ---
Author Author [facility] Organization [facility] Address Unknown Phone Unavailable Care Team Providers Care Edge Grinder Machine Name Role Phone Tamar Eaton Primary Care Physician [phone] Encounter Date(s): 03/24/15 - 03/24/15 [facility] [address] [place] [address] Dr [place] [address]- Discharge Diagnosis: Acute back pain Discharge Diagnosis: [...] # 30 tabs, 0 Refill(s), Pharmacy: [facility] [id number], 1 tabs Oral TID,PRN:as needed for spasm [...]
--- OUTSIDE RECORDS SUMMARY | 2017-02-24 17:50 | XMS REPORT | Referral Summary ---
Author Author [facility] Organization [facility] Address Unknown Phone Unavailable Care Team Providers Care Senior Software Test Engineer Name Role Phone Tamar Eaton Primary Care Physician [phone] Encounter VC Date(s): 03/24/15 - 03/24/15 [facility] [address] [place] [address] Dr Aleman [place] [id number] Discharge Diagnosis: Acute back pain Discharge Diagnosis: [...] spasm, # 30 tabs, 0 Refill(s), Pharmacy: [facility] [address], 1 tabs Oral TID,PRN:as needed for spasm [...] Daily, # 90 tabs, 3 Refill(s), Pharmacy: [facility] [place] [phone], 1 [...]
--- OUTSIDE RECORDS SUMMARY | 2017-02-24 17:50 | XMS REPORT | Referral Summary ---
Author Author [facility] Organization [facility] Orthopedics Address Unknown Phone Unavailable Care Team Providers Care Conche Operator Name Role Phone Tamar Eaton Primary Care Physician [phone] Encounter [facility] [id number] Date(s): 09/05/15 - 09/05/15 [facility], Orthopedics [address] [place], [place] [address] Discharge Diagnosis: Rupture of tendon Discharge Disposition: 01-Home or Self Care Attending Physician: Jovany Jimenez MD Admitting Physician: Jovany Jimenez MD Vital Signs Most recent to 1 oldest [Reference Range]: Temperature Oral 36.6 degC [35.8-37.3 degC] (09/05/15 9:32 AM) Problem List Condition Effective Dates Status [...] spasm, # 30 tabs, 0 Refill(s), [facility]acy: [facility] [address], 1 tabs Oral TID,PRN:as needed for spasm [...] LABS DONE PRIOR TO NEXT FILL./CALL TO [facility] AND ADVISED LAST FILL./NEEDS AN APPT. AND [...]
--- OUTSIDE RECORDS SUMMARY | 2017-02-24 17:50 | XMS REPORT ---
Author Author Rebel Augustine Organization [employer] Address Unknown Phone Unavailable Care Team Providers Care Animal Cruelty Investigation Supervisor Name Role Phone Rebel Augustine CP Unavailable Allergies No Known Allergies Problems Problem Type Condition Code Onset Dates Condition Status Assessment Dental caries, unspecified K02.9 Active Medications Medication Code System Code Instructions Start Date End Date Status Dosage Premarin [facility][NOTE 3] [address]-31 not defined Synthroid [facility][NOTE 3] [address]-05 not defined Ropinirole HCl [facility][NOTE 3] [address]-79 not defined Cymbalta [facility][NOTE 3] [address]-61 not defined Results No Known Results Summary Purpose [employer] Submission
--- NOTE | 2017-02-24 18:01 | ERPDOC ---
Departure Disposition Decision Date: February 25, 2017 Disposition Decision Time: 01:14 (CHILO OH MD) Disposition: 01 DISCHARGED HOME, SELF-CARE Impression Impression (LOREN LARKIN APRN) Impression: Primary Impression: Depression with suicidal ideation Severity: Moderate (CHILO OH MD) Condition: Improved Seen By: Physician only (CHILO OH MD) Referrals: YONNY STARKEY MD (Family) Patient Instructions: Depression (ED) Problems/Meds/Labs Reviewed?: Yes Medications reviewed and manag: Yes (CHILO OH MD) Additional Instructions: Remain in a safe and beneficial environment for the next 36 hours, and presented to the crisis intervention clinic at [place] first thing Saturday morning Follow up care ordered?: Yes Mental Status: Alert (CHILO OH MD) HPI - Psychosocial General Stated Complaint: SUICIDAL THOUGHTS Time Seen by MD: 17:47 Source: patient Exam Limitations: no limitations (LOREN LARKIN APRN) Time Seen by MD: 17:47 (CHILO OH MD) HPI - Psychosocial Initial Comments She is brought in today by EMS. She had told a friend of hers who told her mother who lives in [place] that she was feeling like she has no reason to live any longer. Her mother then called PD. She states that she recently broke up with her BF and had to sell her house as she does not have a job to pay for it. She closes on her house on the March 15 and does not have anywhere to go after that. She denies any plan for suicide but has had thoughts. She has never had a suicide attempt in the past but has been treated for depression in the past. Denies any ETOH, drugs, or ingestion of pills today. Occurred At: home Onset: Gradual Duration: 1 week Severity: moderate Associated Symptoms: suicidal ideation, DENIES: anxiety, impaired concentration , ingestion, injury, insomnia Hx of Similar Symptoms: No (LOREN LARKIN APRN) Allergies: Coded Allergies: indomethacin (Verified Allergy, Unknown, 02/24/17) bupropion (Verified Adverse Reaction, Mild, 02/24/17) Past History Past Medical History Metabolic: hypothyroidism Female: UTI Neurological: fibromyalgia Hematologic: other Psychological: depression (LOREN LARKIN APRN) Surgical History General: appendix Reproductive/: , hysterectomy Joint: foot, shoulder (NOLD,LOREN N RESEARCH PROFESSOR) Family History Family History: Negative (NOLD,LOREN N RESEARCH PROFESSOR) Vaccines Hx Influenza Vaccination: No Hx Pneumococcal Vaccination: No Hx Tetanus, Diptheria, Pertuss: No (NOLD,LOREN N RESEARCH PROFESSOR) Social History Smoking Status: Never smoker Substance Use Type: does not use Alcohol Intake: none Sexuality: male partner (NOLD,LOREN N RESEARCH PROFESSOR) Review of Systems Constitutional Constitutional: DENIES: chills, dizziness, fatigue, fever, weakness (NOLD, LOREN N RESEARCH PROFESSOR) Cardiovascular Cardiac: DENIES: chest pain, orthopnea Rhythm/Rate: DENIES: irregular beat, palpitations (NOLD,LOREN N RESEARCH PROFESSOR) Pulmonary Respiratory: DENIES: cough, dyspnea, sputum, tachypnea (NOLD,LOREN N RESEARCH PROFESSOR) GI Upper Abdomen: DENIES: nausea, pain, vomiting Lower Abdomen: DENIES: constipation, diarrhea, pain (NOLD,LOREN N RESEARCH PROFESSOR) Integumentary Skin: DENIES: rash (NOLD,LROEN N RESEARCH PROFESSOR) Neurological General: DENIES: headache, numbness, tingling, weakness (NOLD,LOREN N RESEARCH PROFESSOR) Physical Exam General General Nourishment: well nourished, well developed, appears stated age, no acute distress, adult General Body Habitus: well groomed (NOLD,LOREN N RESEARCH PROFESSOR) Vitals and Pain First Documented Vital Signs Date Time Temp Pulse Resp B/P Pulse Ox O2 Delivery O2 Flow Rate FiO2 02/24/17 17:45 98.3 92 18 130/68 99 Room Air (CHILO OH MD) Vitals and Pain Weight: Kilograms: Height (feet): 5 Height (inches): 2.00 Triage Pain Scale: (NOMITCHELL,LOREN N RESEARCH PROFESSOR) RN VS reviewed by Provider: Yes (NOSOSAESA N RESEARCH PROFESSOR) Normal Exams: ENMT: No facial trauma, nasal exudates, pharyngeal erythema, or exudates are noted Neck: Full range of motion, without adenopathy, JVD, bruits or thyromegaly Chest/Resp: Clear all [place], with good airflow, and symmetry bilaterally CV: Regular rate and rhythm, without murmur or gallop, Pulses 2+ all extremities, capillary refill, <2 seconds all ext., no pedal edema noted Abdomen: Bowel sounds positive, soft, non-tender, non-distended, no hepatosplenomegaly, masses or bruits noted Lymphatic: No lymphadenopathy, or lymphedema noted Integumentary: No rashes, hives, or bruising noted Neurologic: Patient is alert, and oriented Psychiatric: Patient exhibits, appropriate attention, emotion and affect (NOLD,LOREN N RESEARCH PROFESSOR) Differential Diagnoses Considering: Anxiety, Bipolar, Depression, Sharron, Suicidal Ideation (NOLD,LOREN N RESEARCH PROFESSOR) Progress Results/Orders Orders Procedure Category Date Status Time Drug Screen LAB 02/24/17 [place] [facility] [place] Salicylate LAB 02/24/17 Complete Acetaminophen LAB 02/24/17 Complete Ethanol LAB 02/24/17 Complete Cbc W/Auto LAB 02/24/17 Complete Diff-Reflex Manual Bmp - Basic Metabolic LAB 02/24/17 Complete Panel Ua, Dip Wreflex LAB 02/24/17 Complete [facility] [employer] [facility] 17:55 Ropinirole (Requip) PHA 02/24/17 Complete 20:00 Ketorolac (Toradol) PHA 02/24/17 Complete 22:30 Prochlorperazine PHA 02/24/17 Complete (Compazine) 22:30 (CHILO OH MD) Lab Results Laboratory Tests Test 02/24/17 18:09 02/24/17 20:07 02/24/17 20:42 White Blood Count 8.2T/MM3 Red Blood Count 4.15M/MM3 Hemoglobin 12.9GM/DL Hematocrit 39.7% Mean Corpuscular Volume 95.7UM3 Mean Corpuscular Hemoglobin 31.1UUG Mean Corpuscular Hemoglobin Concent 32.5GM/DL RDW Standard Deviation 41.6FL Platelet Count 402T/MM3 Mean Platelet Volume 8.6UM3 Immature Granulocyte % (Auto) 0.1% Neutrophils (%) (Auto) 68.6% Lymphocytes (%) (Auto) 25.7% Monocytes (%) (Auto) 4.7% Eosinophils (%) (Auto) 0.8% Basophils (%) (Auto) 0.1% Absolute Immature Granulocyte (auto 0.01T/MM3 Absolute Neutrophils (auto) 5.6T/MM3 Absolute Lymphocytes (auto) 2.1T/MM3 Absolute Monocytes (auto) 0.4T/MM3 Absolute Eosinophils (auto) 0.1T/MM3 Absolute Basophils (auto) 0.0T/MM3 Turbidity < 20 Sodium Level 144MEQ/L Potassium Level 3.9MEQ/L Chloride Level 104MEQ/L Carbon Dioxide Level 27MEQ/L Anion Gap 13MEQ/L Blood Urea Nitrogen 14.0MG/DL Creatinine 0.8MG/DL Glomerular Filtration Rate Calc 74 BUN/Creatinine Ratio 18RATIO Glucose Level 94MG/DL Calculated Osmolality 278MOSM/KG Calcium Level 9.2MG/DL Icterus Index < 2 Chemistry Specimen Hemolysis < 15 Salicylates Level < 1.0MG/DL Acetaminophen Level < 10UG/ML Alcohol, Quantitative <10MG/DL Urine Collection Type Urine Color Yellow Urine Turbidity Clear Urine pH 6.5 Urine Specific [place] 1.000 Urine Protein Negative Urine Glucose (UA) Negative Urine Ketones Negative Urine Blood Negative Urine Nitrite Negative Urine Bilirubin Negative Urine Urobilinogen 0.2EU/DL Urine Leukocyte Esterase Negative Urinalysis Comment Microscopic not ind. Urine Opiates Screen NegativeNG/ML Urine Oxycodone Screen NegativeNG/ML Urine Methadone Screen NegativeNG/ML Urine Propoxyphene Screen NegativeNG/ML Urine Barbiturates Screen NegativeNG/ML Urine Tricyclic Antidepressants NegativeNG/ML Urine Phencyclidine Screen NegativeNG/ML Urine Amphetamines Screen NegativeNG/ML Urine Methamphetamines Screen NegativeNG/ML Urine Benzodiazepines Screen NegativeNG/ML Urine Cocaine Screen NegativeNG/ML Urine Cannabinoids Screen NegativeNG/ML Lab Scanned Report REFERENCE [id number] (HCILO OH MD) Medications Current ED Medications Ropinirole HCl (Requip) 2 mg O ONCE PO Last administered on 02/24/17t 20:10; Start 02/24/17 at 20:00; Stop 02/24/17 at 20:02; Status DC Ketorolac Tromethamine (Toradol) 60 mg O ONCE IM ; Start 02/24/17 at 22:30; Stop 02/24/17 at 22:31; Status DC Prochlorperazine Edisylate (Compazine) 10 mg O ONCE IM ; Start 02/24/17 at 22: 30; Stop 02/24/17 at 22:31; Status DC (CHILO OH MD) Progress Progress 2030- [facility] notified of need for screener to come evaluate patient. CBC, BMP, UA, and UDS are normal today. I did talk with her about a possible generation admission. She states that she has no money and so does not want to do this, states to just send her home. She does not have a support system here in [place]. Will have screener come and see patient. 2042- Spoke with Bahman with [facility] who will come and see the patient for psychiatric screening. (LOREN LARKIN APRN) Progress After extensive workup and arrangement with [facility] for voluntary hospitalization, patient has now found her ex-, Lars Herrera, is willing to pick her up, sure her safety for the next 36 hours, and help her get to an appointment on Saturday at [place]. (CHILO OH MD) LOREN LARKIN APRN February 24, 2017 18:01 CHILO OH MD February 25, 2017 01:15 CHILO OH MD February 25, 2017 01:15
[2017-02-24] MEDS ORDERED: DIPH50CA44 PO (18:06)
--- NOTE | 2017-02-24 18:09 | NUR ---
LAB LAB AT BEDSIDE FOR BLOOD DRAW
[2017-02-24 18:17] LABS: BASOPHILS % (AUTO) 0.1 % (0-2); EOSINOPHILS # (AUTO) 0.1 T/MM3 (0-0.5); EOSINOPHILS % (AUTO) 0.8 % (0-4); HCT - HEMATOCRIT 39.7 % (36-46); HGB - HEMOGLOBIN 12.9 GM/DL (12-16); IMMATURE GRANULOCYTE # (AUTO) 0.01 T/MM3 (0.00-0.03); IMMATURE GRANULOCYTE % (AUTO) 0.1 % (0.0-0.5); LYMPHOCYTES # (AUTO) 2.1 T/MM3 (1-4.8); LYMPHOCYTES % (AUTO) 25.7 % (23-45); MEAN CORPUSCULAR HGB 31.1 UUG (26-34); MEAN CORPUSCULAR HGB CONC(MCHC 32.5 GM/DL (31-37); MEAN CORPUSCULAR VOLUME 95.7 UM3 (80-100); MEAN PLATELET VOLUME 8.6 UM3 (9.4-12.4); MONOCYTES # (AUTO) 0.4 T/MM3 (0-0.8); MONOCYTES % (AUTO) 4.7 % (0-9.0); NEUTROPHILS #(AUTO)-ABSOLUTE 5.6 T/MM3 (1.8-7.7); NEUTROPHILS % (AUTO) 68.6 % (33-66); RED BLOOD COUNT 4.15 M/MM3 (4.00-5.20); WBC - WHITE BLOOD COUNT 8.2 T/MM3 (4.5-11.0)
[2017-02-24 18:22] LABS: ANION GAP 13 MEQ/L (5-15); BUN/CREATININE RATIO 18 RATIO (6-26); CALCIUM 9.2 MG/DL (8.4-10.2); CHLORIDE 104 MEQ/L (98-107); CO2 - CARBON DIOXIDE 27 MEQ/L (22-30); CREATININE 0.8 MG/DL (0.7-1.2); GLOMERULAR FILTRATION RATE 74; GLUCOSE 94 MG/DL (65-110); POTASSIUM 3.9 MEQ/L (3.6-5); SODIUM 144 MEQ/L (134-144)
[2017-02-24 18:30] LABS: ACETAMINOPHEN < 10 UG/ML (10-30); ETHANOL <10 MG/DL (<10); SALICYLATE < 1.0 MG/DL (2-20)
--- NOTE | 2017-02-24 18:33 | NUR ---
INTAKE WATER GIVEN TO PT. SO SHE WILL BE ABLE TO VOID FOR URINE SPECIMEN.
[2017-02-24] MEDS ORDERED: ROPINIROLE 2 MG TABLET PO ONE (20:00)
--- NOTE | 2017-02-24 20:07 | NUR ---
ELIMINATION PT AMBULATORY TO BATHROOM TO VOID LAB HERE TO OBTAIN URINE SAMPLE PT COOPERATIVE AND RETURNS TO ROOM
--- NOTE | 2017-02-24 20:10 | NUR ---
MED PT ASKING FOR HER RESTLESS LEG MEDICATION BRUSH FINISHER NOTIFIED REQUIP GIVEN PO
--- NOTE | 2017-02-24 20:10 | NUR ---
COMFORT HOB LOWERED TO PT'S COMFORT LIGHTS DIMMED AND WARM BLANKET PROVIDED PT DENIES ANY OTHER NEEDS
[2017-02-24 20:24] LABS: AMPHETAMINE SCREEN,URINE NEGATIVE; BARBITURATE SCREEN,URINE NEGATIVE; BENZODIAZEPINES SCREEN,URINE NEGATIVE; CANNABINOID SCREEN,URINE NEGATIVE; COCAINE SCREEN,URINE NEGATIVE; METHADONE SCREEN, URINE NEGATIVE; METHAMPHETAMINE SCREEN, URINE NEGATIVE; OPIATE SCREEN,URINE NEGATIVE; PHENCYCLIDINE SCREEN,URINE NEGATIVE; TRICYCLIC ANTIDEPRESSANT,URINE NEGATIVE
[2017-02-24 20:36] LABS: COLOR,URINE YELLOW (YELLOW)
[2017-02-24 20:37] LABS: BLOOD, URINE NEGATIVE (NEGATIVE); LEUKOCYTE ESTERASE ,URINE NEGATIVE (NEGATIVE); NITRITE,URINE NEGATIVE (NEGATIVE); UROBILINOGEN,URINE 0.2 EU/DL (NORMAL)
--- NOTE | 2017-02-24 21:00 | NUR ---
REST PT RESTING QUIETLY WITH EYES CLOSED
--- NOTE | 2017-02-24 22:00 | NUR ---
[facility] STAFF HERE FOR EVALUATION
[2017-02-24] MEDS ORDERED: PROCHLORPERAZINE 10mg/2ml INJECTION IM ONE (22:30)
[2017-02-24] MEDS ORDERED: KETOROLAC 60mg/2ml INJECTION IM ONE (22:30)
--- NOTE | 2017-02-24 22:40 | NUR ---
STATUS PT IS COOPERATIVE WITH [facility] STAFF REMAINS CALM, VERY QUIET
--- NOTE | 2017-02-24 23:00 | NUR ---
HEADACHE PT REPORTS HEADACHE FROM CRYING TO [facility] WORK[facility]
--- NOTE | 2017-02-25 01:28 | NUR ---
MEDS COMPAZINE AND TORADOL IM GIVEN BY CHRISTIANO LEWIS
--- NOTE | 2017-02-25 01:42 | NUR ---
STATUS PT AWAKE LAYING ON THE CART INFORMED HER RIDE IS HERE NOW PT CLOTHES BROUGHT TO ROOM AND PT CHANGED INTO HER STREET CLOTHES PT HAS HER PURSE AND CELL PHONE WITH HER ALSO
--- NOTE | 2017-02-25 01:51 | NUR ---
INSTRUCTIONS DISMISSAL INSTRUCTIONS GIVEN TO PT PT AGREES TO SAFETY PLAN AND WILL STAY WITH EX- FOR THE NEXT 2 DAYS WILL FOLLOW-UP WITH OTIS DAVISON SATURDAY SCHEDULED WITH THE [facility]
--- NOTE | 2017-02-25 01:53 | NUR ---
[facility] LORIE FROM [facility] WENT THROUGH WRITTEN SAFETY PLAN WITH PT AND EX- MARISA. BOTH AGREED TO THE PLAN AND VERBALIZED UNDERSTANDING.
[2017-02-25 01:58] VITALS: BP 119/70; PULSE 66; RESP 14; TEMP 98.3; O2SAT 100
--- NOTE | 2017-02-25 01:58 | NUR ---
DISMISS PT DISMISSED AMBULATORY WITH EX- SHE WILL BE STAYING WITH FOR THE NEXT 2 DAYS PT AMBULATES WITH STEADY GAIT AND BALANCE
== END 2017-02-25 01:58 | disposition home or self-care (01) ==
LOC: ED 17:45
DX: R45.851 Suicidal ideations (principal); F32.9 Major depressive disorder, single episode, unspecified
CPT/HCPCS: 36415; 80048; 80306; 80307; 81003; 85025; 96372